=== PATIENT | female | born 1960 | race African-American/Black ===

== ENCOUNTER 2018-10-04 11:15 | Emergency (ER) | payer OTHER ==
[~2018-10-04] VITALS: Ht 162.6 cm; Wt 104.3 kg
[2018-10-04] MEDS ORDERED: IV NORMAL SALINE 1000ML BAG 1,000 ML IV SCH (12:11)
[2018-10-04] MEDS ORDERED: IPRATRPIUM/ALBUTEROL 0.5/2.5MG 3 ML NEBU. NEB ONE (12:15)
--- NOTE | 2018-10-04 12:23 | PHYS DOC ---
Past Medical History Past Medical History: Diabetes-Type II, Hypertension, CA Past Surgical History: Knee Replacement Smoking: Cigarettes Alcohol Use: Occasionally Drug Use: None Adult General Chief Complaint Chief Complaint: SHORTNESS OF BREATH HPI HPI Patient is a 58-year-old female who presents to the emergency department for evaluation. She states for the past 3 weeks she has had gradually worsening shortness of breath, along with a cough productive of whitish sputum which is occasionally blood-tinged. She denies any pain, although she does report some left-sided throat pain. She denies any chest pain or pleuritic pain, dizziness or lightheadedness, numbness, or weakness. She states she was asked is scheduled to see her PCP today, but her coughing and shortness of breath worsened overnight so she presented to the emergency department. Her initial saturation on room air was 91%, improved to the upper 90s on oxygen. There are no alleviating or exacerbating factors to her symptoms. Unfortunately, the patient is a current smoker. Additionally, her symptoms started after she returned by airplane from [facility]. Review of Systems Review of Systems Constitutional: Denies fever or chills [] Eyes: Denies change in visual acuity, redness, or eye pain [] HENT: Denies nasal congestion or otalgia[] Respiratory: No additional information not addressed in HPI[] Cardiovascular: The patient denies any chest pain, palpitations, or orthopnea [] GI: Denies abdominal pain, nausea, vomiting, bloody stools or diarrhea [] : Denies dysuria or hematuria [] Musculoskeletal: Denies back pain or joint pain [] Integument: Denies rash or skin lesions [] Neurologic: Denies headache, focal weakness or sensory changes [] Endocrine: Denies polyuria or polydipsia [] All other systems were reviewed and found to be within normal limits, except as documented in this note. Current Medications Current Medications Current Medications Medications (Trade) Dose Ordered Sig/Jose Juan Start Time Stop Time Status Last Admin Dose Admin Albuterol/ Ipratropium (Duoneb) 3 ml 1X ONCE 10/04/18 12:15 10/04/18 13:48 DC 10/04/18 12:45 3 ML Info (CONTRAST GIVEN -- Rx MONITORING) 1 each PRN DAILY PRN 10/04/18 14:15 10/06/18 14:14 Iohexol (Omnipaque 350 Mg/ml) 100 ml 1X ONCE 10/04/18 14:15 10/04/18 14:16 DC 10/04/18 14:24 100 ML Sodium Chloride 1,000 ml @ 100 mls/hr Q10H 10/04/18 12:11 10/04/18 22:10 10/04/18 12:11 100 MLS/HR Allergies Allergies Allergies Coded Allergies Type Severity Reaction Last Updated Verified No Known Drug Allergies 10/04/18 No Physical Exam Physical Exam PHYSICAL EXAM: CONSTITUTIONAL: Well developed, well nourished HEAD: normocephalic, atraumatic EENT: PERRL, EOMI. Conjunctivae normal color, sclerae non-icteric; moist mucous membranes. The oropharynx is nonerythematous, and unremarkable. NECK: Supple, non-tender; no meningismus. LUNGS: There are globally diminished breath sounds in all lung leung, without rales, wheezes, or rhonchi. HEART: Regular rate and rhythm, no murmur CHEST: No deformity; non-tender ABDOMEN: The abdomen is soft, and non-tender, no masses or bruits. EXTREM: Normal ROM; no deformity, no calf tenderness. Normal pulses palpable in all extremities. There is no pedal edema. SKIN: No rash; no diaphoresis NEURO: Alert; normal speech and cognition; CN's grossly intact; strength grossly intact without focal deficit. BACK: No CVA TTP. Current Patient Data Vital Signs Vital Signs Date Time Temp Pulse Resp B/P (MAP) Pulse Ox O2 Delivery O2 Flow Rate FiO2 10/04/18 14:00 90 21 149/81 (103) 95 Nasal Cannula 2.0 10/04/18 12:05 98.5 98.5 Lab Values Laboratory Tests Test 10/04/18 13:24 White Blood Count 12.3 x10^3/uL (4.0-11.0) H Red Blood Count 4.94 x10^6/uL (3.50-5.40) Hemoglobin 13.4 g/dL (12.0-15.5) Hematocrit 42.8 % (36.0-47.0) Mean Corpuscular Volume 87 fL (79-100) Mean Corpuscular Hemoglobin 27 pg (25-35) Mean Corpuscular Hemoglobin Concent 31 g/dL (31-37) Red Cell Distribution Width 15.6 % (11.5-14.5) H Platelet Count 373 x10^3/uL (140-400) Neutrophils (%) (Auto) 68 % (31-73) Lymphocytes (%) (Auto) 21 % (24-48) L Monocytes (%) (Auto) 6 % (0-9) Eosinophils (%) (Auto) 4 % (0-3) H Basophils (%) (Auto) 1 % (0-3) Neutrophils # (Auto) 8.3 x10^3uL (1.8-7.7) H Lymphocytes # (Auto) 2.6 x10^3/uL (1.0-4.8) Monocytes # (Auto) 0.8 x10^3/uL (0.0-1.1) Eosinophils # (Auto) 0.4 x10^3/uL (0.0-0.7) Basophils # (Auto) 0.2 x10^3/uL (0.0-0.2) Prothrombin Time 11.9 SEC (11.7-14.0) Prothrombin Time INR 0.9 (0.8-1.1) Sodium Level 140 mmol/L (136-145) Potassium Level 5.2 mmol/L (3.5-5.1) H Chloride Level 100 mmol/L (98-107) Carbon Dioxide Level 31 mmol/L (21-32) Anion Gap 9 (6-14) Blood Urea Nitrogen 19 mg/dL (7-20) Creatinine 0.9 mg/dL (0.6-1.0) Estimated GFR (Cockcroft-Gault) 77.3 BUN/Creatinine Ratio 21 (6-20) H Glucose Level 169 mg/dL (70-99) H Lactic Acid Level 1.6 mmol/L (0.4-2.0) Calcium Level 9.7 mg/dL (8.5-10.1) Total Bilirubin 0.5 mg/dL (0.2-1.0) Aspartate Amino Transferase (AST) 20 U/L (15-37) Alanine Aminotransferase (ALT) 19 U/L (14-59) Alkaline Phosphatase 110 U/L (46-116) Creatine Kinase 236 U/L (26-192) H Creatine Kinase MB (Mass) 1.2 ng/mL (0.0-3.6) Creatine Kinase MB Relative Index 0.5 % (0-4) Troponin I Quantitative < 0.017 ng/mL (0.000-0.055) MB-Ogi-S-Type Natriuretic Peptide 35 pg/mL (0-124) Total Protein 8.4 g/dL (6.4-8.2) H Albumin 3.5 g/dL (3.4-5.0) Albumin/Globulin Ratio 0.7 (1.0-1.7) L Laboratory Tests 10/04/18 13:24 Laboratory Tests 10/04/18 13:24 EKG EKG [Normal sinus rhythm at a rate of 88 bpm, left axis deviation there are no acute ischemic ST/T changes.] Radiology/Procedures Radiology/Procedures [PROCEDURE: PORTABLE CHEST 1V PORTABLE CHEST 1V History: SHORT OF BREATH, COUGH . No prior for comparison. Cardiac silhouette is mildly enlarged. No pneumothorax is seen. There is suboptimal evaluation of the lower lungs due to body habitus. No definite consolidating infiltrate or large effusion. IMPRESSION: No definite acute abnormality. Heart size appears mildly enlarged.] PROCEDURE: CT ANGIOGRAPHY CHEST CT ANGIOGRAPHY CHEST Indication: SOA HEMOPTYSIS X 2 WEEKS NO PREV INJ 100ML OMNI 350 . Technique: After intravenous contrast administration, CT imaging was performed of the chest. MIP reconstructions were obtained. Exposure: One or more of the following individualized dose reduction techniques were utilized for this examination: 1. Automated exposure control 2. Adjustment of the mA and/or kV according to patient size 3. Use of iterative reconstruction technique. Findings: No evidence of central pulmonary embolism. Limited evaluation of the segmental branches, due to body habitus. The thoracic aorta demonstrates no evidence of aneurysm or dissection. Mild pulsatility artifact at the ascending aorta. Thyroid slightly asymmetric, larger on the right. No significant lymph node enlargement. No pericardial effusion. Mild coronary artery calcification. No significant pleural effusion. Flat nodule identified in the right upper lobe anteriorly measures 4 mm diameter. Another right upper lobe nodule measures 3 mm.Right middle lobe nodule measures 6 mm, image 83 series 3. No evidence of consolidating infiltrate. No consolidating infiltrate. The trachea and central airways appear patent. Degenerative changes of the spine. Vertebral body height appear grossly maintained. Limited scans through the upper abdomen demonstrate no acute findings. IMPRESSION: 1. No evidence of pulmonary embolism. 2. Small pulmonary nodules, measuring up to 6 mm diameter. As per revised Fleischner Society guidelines, recommend follow-up CT chest in 3-6 months. Course & Med Decision Making Course & Med Decision Making Pertinent Labs and Imaging studies reviewed. (See chart for details) [3:05 PM: The patient's condition remains stable. I discussed test results in detail with the patient, the need for close follow-up with pulmonology, given the CT findings, as well as ENT, for the throat pain, and we discussed return precautions.] Dragon Disclaimer Dragon Disclaimer This electronic medical record was generated, in whole or in part, using a voice recognition dictation system. Departure Departure Impression: Primary Impression: Cough Disposition: 01 HOME, SELF-CARE Condition: STABLE Referrals: RICK ROSEN MD (PCP) VIGNESH CAMARILLO MD, AMAN U MD Patient Instructions: Cough, Adult Scripts Albuterol Sulfate (PROAIR HFA INHALER) 8.5 Gm Hfa.aer.ad 1 PUFF INH PRN Q6HRS PRN for SHORTNESS OF BREATH, #1 INHALER 0 Refills Prov: ABBY JONES MD 10/04/18 ABBY JONES MD Oct 04, 2018 12:23
--- NOTE | 2018-10-04 12:37 | RAD ---
PORTABLE CHEST 1V History: SHORT OF BREATH, COUGH . No prior for comparison. Cardiac silhouette is mildly enlarged. No pneumothorax is seen. There is suboptimal evaluation of the lower lungs due to body habitus. No definite consolidating infiltrate or large effusion. IMPRESSION: No definite acute abnormality. Heart size appears mildly enlarged. Electronically signed by: Roberto Silverio MD (10/04/2018 12:34 PM) [id number]
[2018-10-04 13:37] LABS: BASO # 0.2 x10^3/uL (0.0-0.2); BASO % 1 % (0-3); EOS # 0.4 x10^3/uL (0.0-0.7); EOS % 4 % (0-3); HEMATOCRIT 42.8 % (36.0-47.0); HEMOGLOBIN 13.4 g/dL (12.0-15.5); LYMPH # 2.6 x10^3/uL (1.0-4.8); LYMPH % 21 % (24-48); MEAN CORPUSCULAR HEMOGLOBIN 27 pg (25-35); MEAN CORPUSCULAR HGB CONC 31 g/dL (31-37); MEAN CORPUSCULAR VOLUME 87 fL (79-100); MONO # 0.8 x10^3/uL (0.0-1.1); MONO % 6 % (0-9); NEUT # 8.3 x10^3uL (1.8-7.7); NEUT % 68 % (31-73); PLATELET COUNT 373 x10^3/uL (140-400); RED BLOOD COUNT 4.94 x10^6/uL (3.50-5.40); RED CELL DISTRIBUTION WIDTH 15.6 % (11.5-14.5); WHITE BLOOD COUNT 12.3 x10^3/uL (4.0-11.0)
[2018-10-04 13:47] LABS: PROTHROMBIN TIME PATIENT 11.9 SEC (11.7-14.0)
[2018-10-04 13:49] LABS: CALCIUM 9.7 mg/dL (8.5-10.1); CREATININE 0.9 mg/dL (0.6-1.0); GFR 77.3
[2018-10-04 13:54] LABS: POTASSIUM 5.2 mmol/L (3.5-5.1)
[2018-10-04 13:55] LABS: ALBUMIN 3.5 g/dL (3.4-5.0); ALBUMIN/GLOBULIN RATIO 0.7 (1.0-1.7); TOTAL BILIRUBIN 0.5 mg/dL (0.2-1.0); TOTAL PROTEIN 8.4 g/dL (6.4-8.2)
--- NOTE | 2018-10-04 14:07 | EKG ---
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
[2018-10-04] MEDS ORDERED: CONTRAST GIVEN. MC PRN (14:15)
[2018-10-04] MEDS ORDERED: IOHEXOL 350 MG/ML 100 ML VIAL. IV ONE (14:15)
--- NOTE | 2018-10-04 14:43 | RAD ---
CT ANGIOGRAPHY CHEST Indication: SOA HEMOPTYSIS X 2 WEEKS NO PREV INJ 100ML OMNI 350 . Technique: After intravenous contrast administration, CT imaging was performed of the chest. MIP reconstructions were obtained. Exposure: One or more of the following individualized dose reduction techniques were utilized for this examination: 1. Automated exposure control 2. Adjustment of the mA and/or kV according to patient size 3. Use of iterative reconstruction technique. Findings: No evidence of central pulmonary embolism. Limited evaluation of the segmental branches, due to body habitus. The thoracic aorta demonstrates no evidence of aneurysm or dissection. Mild pulsatility artifact at the ascending aorta. Thyroid slightly asymmetric, larger on the right. No significant lymph node enlargement. No pericardial effusion. Mild coronary artery calcification. No significant pleural effusion. Flat nodule identified in the right upper lobe anteriorly measures 4 mm diameter. Another right upper lobe nodule measures 3 mm.Right middle lobe nodule measures 6 mm, image 83 series 3. No evidence of consolidating infiltrate. No consolidating infiltrate. The trachea and central airways appear patent. Degenerative changes of the spine. Vertebral body height appear grossly maintained. Limited scans through the upper abdomen demonstrate no acute findings. IMPRESSION: 1. No evidence of pulmonary embolism. 2. Small pulmonary nodules, measuring up to 6 mm diameter. As per revised Fleischner Society guidelines, recommend follow-up CT chest in 3-6 months. Electronically signed by: Roberto Silverio MD (10/04/2018 2:40 PM) [id number]
[2018-10-04 15:00] VITALS: BP 130/79
[2018-10-04] MEDS ORDERED: ALBU2.5V8 INH (15:07)
[2018-12-19] MEDS ORDERED: SERT50TA PO (07:18)
[2018-12-19] MEDS ORDERED: AMLO10TA8 PO (07:18)
[2018-12-19] MEDS ORDERED: LOSA1TAB19 PO (07:18)
[2018-12-19] MEDS ORDERED: ATOR40TA59 PO (07:18)
[2018-12-19] MEDS ORDERED: EXEN2PEN SQ (07:18)
[2018-12-19] MEDS ORDERED: METF10007 PO (07:18)
== END 2018-10-04 15:22 | disposition home or self-care (01) ==
LOC: ER 11:15
DX: R05 Cough (principal); R06.02 Shortness of breath; R07.0 Pain in throat; E11.9 Type 2 diabetes mellitus without complications; I10 Essential (primary) hypertension; I25.2 Old myocardial infarction; F17.210 Nicotine dependence, cigarettes, uncomplicated; Z96.659 Presence of unspecified artificial knee joint
CPT/HCPCS: 36415; 71045; 71275; 80053; 82553; 83605; 83880; 84484; 85025; 85610; 87040; 93005; 94640; 99284; J7030; J7620; Q9967

== ENCOUNTER → 2018-12-19 | Day surgery (SDC) | payer OTHER ==
[~2018-12-19] MED LIST: ALBU2.5V8 INH; AMLO10TA8 PO; ATOR40TA59 PO; EXEN2PEN SQ; HYDROmorphone 2 MG/ML VIAL IV PRN; IV RINGERS,LACTATED 1000ML 1,000 ML IV SCH; LIDOCAINE 2% PF 5 ML VIAL. ONE; LOSA1TAB19 PO; METF10007 PO; MORPHINE SULFATE 2 MG/ML VIAL. IV PRN; ONDANSETRON PF 4 MG/2 ML VIAL. IV PRN; PROCHLORPERAZINE 10 MG/2 ML VIAL. IV PRN; PROPOFOL 40 ML IV ONE; SERT50TA PO; fentaNYL PF VIAL 100 MCG/2 ML VIAL IV PRN
[2018-12-19 08:30] VITALS: BP 100/62
== END ==
LOC: ENDOS 06:49
PROVIDERS: ATTEND Internal Medicine Gastroenterology
DX: K21.0 Gastro-esophageal reflux disease with esophagitis (principal); K22.2 Esophageal obstruction; K29.50 Unspecified chronic gastritis without bleeding; E11.9 Type 2 diabetes mellitus without complications; I10 Essential (primary) hypertension; Z79.82 Long term (current) use of aspirin
CPT/HCPCS: 43239; 43450; 88305; J2001; J2704